=== PATIENT | male | born 1960 | race Caucasian/White ===

== ENCOUNTER → 2018-10-10 09:02 | Outpatient (CLI) | payer OTHER, SELFPAY ==
--- NOTE | 2018-10-10 09:04 | DI.RAD.S_ITS ---
PROCEDURE: XR TIBIA FIBULA RT 2V INDICATIONS: pain and swelling TECHNIQUE: 2 views of the tibia and fibula were acquired. COMPARISON: None. FINDINGS: Bones: No fractures or dislocations. No suspicious bony lesions. No osseous erosive change. No periosteal reaction. Soft tissues: No suspicious soft tissue calcifications or masses. IMPRESSION: No fracture. No osseous lesion. If symptoms and/or clinical suspicion for pathology persists, further assessment with repeat radiographs (7-10 days) or advanced imaging (e.g. CT, MRI or bone scan) may be helpful. Dictated by: Trang Justice MD, PhD on 10/10/2018 at 9:39 Approved by: Trang Justice MD, PhD on 10/10/2018 at 9:40
--- NOTE | 2018-10-10 09:04 | DI.RAD.S_ITS ---
PROCEDURE: XR KNEE LT 3V INDICATIONS: pain and swelling TECHNIQUE: 3 views of the knee were acquired. COMPARISON: None. FINDINGS: Bones: No fractures or dislocations. No suspicious bony lesions. No osseous erosive changes. No periosteal reaction. Soft tissues: No joint effusion. No suspicious soft tissue calcifications. Prepatellar soft tissue swelling is noted. No soft tissue gas. IMPRESSION: No fracture. No osseous lesion. If symptoms and/or clinical suspicion for pathology persists, further assessment with repeat radiographs (7-10 days) or advanced imaging (e.g. CT, MRI or bone scan) may be helpful. Dictated by: Tragn Justice MD, PhD on 10/10/2018 at 9:40 Approved by: Trang Justice MD, PhD on 10/10/2018 at 9:40
== END ==
PROVIDERS: Family Provider Family Medicine; PCP Family Medicine; Visit Provider Physician Assistant
DX: M25.562 Pain in left knee (principal); M79.89 Other specified soft tissue disorders
CPT/HCPCS: 73562; 73590

== ENCOUNTER 2019-04-20 08:15 | Outpatient (RCR) | payer OTHER, SELFPAY ==
--- NOTE | 2019-04-13 08:15 | PT.OIE ---
Current Diagnoses Unilateral primary osteoarthritis, left knee (04/16/19) Pain in left knee (04/16/19) Visit Care Team Role Provider Type Karlo Coppola MD Primary Care Provider Non-Staff Specialty: Family Practice Address: [address] [place] [address], [id number] Email: Devin Santana MD Attending Provider Physician Referring Provider Specialty: Orthopedic Surgery Address: [address] [place] [address], [id number] Email: [email or web address] [facility] Initial Evaluation PT-OP-A Visit Information Start: 04/13/19 15:33 Freq: Status: Active Protocol: Document 04/13/19 08:15 DLM (Rec: 04/14/19 09:02 DLM [id number]) Out-Patient Physical Therapy Visit Information Visit Information Visit Type Initial Evaluation Visit Start Time 08:15 Visit Stop Time 09:01 Total Visit Minutes 46 Visit Number 1 Evaluation Information Evaluation Date 04/13/19 PT-OP-B Current Condition Start: 04/13/19 15:33 Freq: Status: Active Protocol: Document 04/13/19 08:15 DLM (Rec: 04/14/19 09:02 DLM [id number]) Current Condition History of Current Condition Onset Date 10/10/18 Current Complaints left knee pain and swelling History of Current Condition He was standing on a fence when it gave way and he fell. He had immediate left knee pain. His knee is better than initial injury but continues to have pain, swelling and feels unstable. He feels the instability is getting worse especially with turning on his knee. His knee gets irritated with activity. Prior Treatments and Tests x-rays on left knee negative Age 17 open left knee surgery for meniscus tear Treatment Goals Patient/Caregiver Goals resolve the knee pain and be able to use the knee for normal activities Prior Functional Status Baseline Function- ADL's Independent Baseline Function- Mobility Independent Baseline Function- Work/School works at [employer], is on his feet standing and walking a lot, does some lifting Baseline Function- Recreation/Hobbies rock climbing, mountain biking Current Functional Impairments (Reported) Functional Limitations- ADL's Independent Functional Limitations- Mobility/Gait able to ambulate without device, knee feels like it will give away when he turns on it Functional Limitations- Work/School able to work normal schedule and hours but knee is swollen and sore after work Functional Limitations- Recreation/ has been limiting his Hobbies activities to manage his knee pain Functional Limitations- Other he reports he thinks he can do normal activities but it increases his pain and swelling Personal Factors Other Personal Factors That May Effect hx left ankle sprains also Therapy/Recovery with last one being last week PT-OP-C Subjective Start: 04/13/19 15:33 Freq: Status: Active Protocol: Document 04/13/19 08:15 DLM (Rec: 04/14/19 09:02 DLM [id number]) OP-PT Subjective Patient Comments Patient Comments He has not been doing any exercises at home, not sure what he should do Patient Questionnaires Lower Extremity Functional Scale LEFS Score 56/80 LEFS Impairment 20 to 39% Impaired (Score 48- 62) OP-PT Pain Assessment Location Left Anterior Medial Knee Intensity 4 Scale Used Numeric (1 - 10) Description Aching Description- Other numbness anterior knee since injury Frequency Constant Variations/Patterns worse with activity Pain Alleviating Factors Cold,Rest Home Pain Medication Use Pain Medications Used Yes: Ibuprofen Pain Behaviors Pain Behaviors Facial Grimacing PT-OP-D Balance Start: 04/13/19 15:33 Freq: Status: Active Protocol: Document 04/13/19 08:15 DLM (Rec: 04/14/19 10:11 DLM [id number]) Balance Tests Single Limb Standing Single Limb- Right >10 sec Single Limb- Left 5 sec with increased sway left ankle PT-OP-F Manual Assessment Start: 04/13/19 15:33 Freq: Status: Active Protocol: Document 04/13/19 08:15 DLM (Rec: 04/14/19 10:18 DLM [id number]) Manual Assessments Joint Mobility Assessment Joint Mobility Assessment left patella shows decreased glides with inferior most affected PT-OP-G Mobility & Gait Start: 04/13/19 15:33 Freq: Status: Active Protocol: Document 04/13/19 08:15 DLM (Rec: 04/14/19 09:02 DLM [id number]) OP Mobility Evaluation Transfers Sit to Stand Independent without UE support Functional Movements Running Assessment pt does not run at baseline due to history of left knee injury OP Gait Assessment Gait Gait Assistance Required: Independent Assistive Devices Assistive Device None Gait Deviations General Gait Pattern Antalgic Factors Limiting Gait Function Factors Limiting Gait Function Pain Comments Gait Comments mild changes in gait pattern with decreased stance time on left PT-OP-J Posture/Palpation/Skin Start: 04/13/19 15:33 Freq: Status: Active Protocol: Document 04/13/19 08:15 DLM (Rec: 04/14/19 10:15 DL [id number]) Posture Evaluation Position Standing Weight Distribution Weight Shifted Right Hip Posture (L) Externally Rotated,(R) Externally Rotated Ankle/Foot Posture (L) Pronated Comments Posture Comments he wears orthotics Palpation Assessment Location One Palpation Location left knee Palpation Findings Edema,Soft Tissue Tightness, Tenderness Palpation Details scar tissue throughout anterior knee, tender along joint line anterior and medial , old incision is well healed with only mild adhesions, edema is pocketed in anterior knee below patella Skin Assessment Circumference Measurement 2 Location Tibial tuberosity, left Measurement (Centimeters) 36.3 Comments right is 35.2 1 Location knee joint, left Measurement (Centimeters) 38.5 Comments right is 37.0 PT-OP-K Range of Motion Start: 04/13/19 15:33 Freq: Status: Active Protocol: Document 04/13/19 08:15 DLM (Rec: 04/14/19 09:02 DL [id number]) Hip Goniometric Range of Motion Hip Right Active Hip ROM WFL Yes Left Active Hip ROM WFL Yes Knee Goniometric Range of Motion Knee Right Knee ROM WFL Yes Patient Position Supine Flexion Active (degrees) 136 Hyper-Extension Active 2 Left Patient Position Supine Flexion Active (degrees) 126 Extension Active (degrees) 0 Knee ROM Limitations Knee ROM Limitations Soft Tissue Tightness,Pain, Swelling Comments hamstring tightness bilaterally Ankle and Foot Goniometric Range of Motion Ankle and Foot Right Active Ankle/Foot ROM WFL Yes Left Active Ankle/Foot ROM WFL Yes PT-OP-L Special Tests Start: 04/13/19 15:33 Freq: Status: Active Protocol: Document 04/13/19 08:15 DLM (Rec: 04/14/19 10:07 DL [id number]) Special Tests Knee Special Tests Valgus- 25 Degrees Test Results negative Comments mild pain on left Valgus- 0 Degrees Test Results negative Posterior Sag Test Results negative Anterior Draw Test Results mild to moderate laxity on left compared to right PT-OP-M Strength Start: 04/13/19 15:33 Freq: Status: Active Protocol: Document 04/13/19 08:15 DLM (Rec: 04/14/19 09:02 DLM [id number]) Hip Strength Hip Manual Muscle Testing Right Flexion (L2) 5 Normal Extension (S1) 5 Normal Abduction 5 Normal Adduction 5 Normal Left Flexion (L2) 5 Normal Extension (S1) 5 Normal Abduction 4+ Good+ Adduction 5 Normal Knee Strength Knee Manual Muscle Testing Right Flexion (S2) 5 Normal Extension (L3) 5 Normal Left Flexion (S2) 4+ Good+ Extension (L3) 4+ Good+ Reason Not Measured Pain Ankle/Foot Strength Ankle and Foot Manual Muscle Testing Right Dorsiflexion (L4) 5 Normal Plantarflexion (S1) 5 Normal Inversion 5 Normal Eversion (S1) 5 Normal Left Plantarflexion (S1) 4+ Good+ Inversion 4+ Good+ Eversion (S1) 4 Good PT-OP-Q Treatments Start: 04/13/19 15:33 Freq: Status: Active Protocol: Document 04/13/19 08:15 DLM (Rec: 04/14/19 10:22 DLM [id number]) Therapeutic Exercises Supine Exercises Hip Adduction Supine Exercise Name Hooklying Side bilateral Resistance isometric with 5 sec hold Reps/Minutes 10 reps Straight Leg Raise Supine Exercise Name with focus on VMO, trials of hip ER to improve isolation Side left Resistance active Reps/Minutes 10 reps x 2 sets Sitting Exercises Ankle Eversion Side left Resistance L2 exercise band Reps/Minutes 10 reps Comments provided exercise band to pt for home use Ankle Inversion Side left Resistance L2 exercise band Reps/Minutes 10 reps Standing Exercises Single Limb Standing Standing Exercise Name balancing/stabalization Side left Reps/Minutes 3 reps Self-Care/Home Management Treatment Education Patient Education Home Exercise Program Other Education education provided for treatment plan PT-OP-T Assessment and Plan Start: 04/13/19 15:33 Freq: Status: Active Protocol: Document 04/13/19 08:15 DLM (Rec: 04/14/19 14:28 DLM [id number]) Physical Therapy Assessment Rehab Potential Rehabilitation Potential Good Evaluation Complexity Number of Personal Factors/Comorbidities 1-2 Number of Body Systems Impaired 4 or More Clinical Presentation at Evaluation Evolving Impairments Impairments Activity Tolerance,Balance, Functional Activities,Gait, Pain,ROM,Sensation,Soft Tissue Mobility,Strength Goals Four Impairment Pain left knee 4/10, constant Short Term Goal (STG) Decrease left knee pain to intermittent STG Duration 4 weeks Resident Service Coordinator Goal (LTG) Left knee pain will not interfere with his return to all normal sports and activities. LTG Duration 8 weeks Three Impairment Antalgic Gait Short Term Goal (STG) Normalize gait pattern without device STG Duration 4 weeks Two Impairment Impaired Strength Short Term Goal (STG) Increase left ankle Eversion strength to 4+/5 STG Duration 4 weeks Mcfp Goal (LTG) Increase left LE strength to 5 /5 LTG Duration 8 weeks One Impairment Impaired left knee ROM, flexion 126 degrees Short Term Goal (STG) Resolve left knee pain with AROM STG Duration 4 weeks Mcfp Goal (LTG) Increase left knee AROM flexion to 135 degrees LTG Duration 8 weeks Assessment Summary Assessment Thee presents with left knee pain that appears to be a strain/sprain from a fall complicated by underlying arthritic changes. He continues to have inflammation and edema that increases when active on left knee. He is very active at baseline and wants to be able to continue his sports and activity. His case is further complicated by ankle instability. He could benefit from physical therapy to address the above deficits. Physical Therapy Plan Frequency and Duration Frequency of Treatment 2x/Week Duration of Treatment 8 Plan of Care Start Date 04/13/19 Plan of Care End Date 06/12/19 Therapeutic Interventions Therapeutic Interventions Balance Training,Gait Training ,Home Exercise Program,Manual Therapy,Patient/Caregiver Education,Self-Care/Home Management,Soft Tissue Mobilization,Taping, Therapeutic Activities, Therapeutic Exercises Modalities Cold Pack/Ice Massage,Electric Stimulation,Hot Packs, Infrared Therapy,Ultrasound Next Visit Focus/Plan Next Note Type Treatment Note Next Visit Plan advance exercises, add manual therapy, trial a modality for pain and edema
--- NOTE | 2019-04-13 08:15 | PT.OPPOC ---
Physical, Occupational & Speech Therapy At [facility] Current Diagnoses Unilateral primary osteoarthritis, left knee (04/13/19) Pain in left knee (04/13/19) Visit Care Team Role Provider Type Karlo Coppola MD Primary Care Provider Non-Staff Specialty: Family Practice Address: [address] [place] [address], [id number] Email: Devin Santana MD Attending Provider Physician Referring Provider Specialty: Orthopedic Surgery Address: [address] [place] [address], [id number] Email: [email or web address] Plan Of Care PT-OP-T Assessment and Plan Start: 04/13/19 15:33 Freq: Status: Active Protocol: Document 04/13/19 08:15 DLM (Rec: 04/14/19 14:28 DLM [id number]) Physical Therapy Assessment Rehab Potential Rehabilitation Potential Good Evaluation Complexity Number of Personal Factors/Comorbidities 1-2 Number of Body Systems Impaired 4 or More Clinical Presentation at Evaluation Evolving Impairments Impairments Activity Tolerance,Balance, Functional Activities,Gait, Pain,ROM,Sensation,Soft Tissue Mobility,Strength Goals Four Impairment Pain left knee 4/10, constant Short Term Goal (STG) Decrease left knee pain to intermittent STG Duration 4 weeks Penitentiary Goal (LTG) Left knee pain will not interfere with his return to all normal sports and activities. LTG Duration 8 weeks Three Impairment Antalgic Gait Short Term Goal (STG) Normalize gait pattern without device STG Duration 4 weeks Two Impairment Impaired Strength Short Term Goal (STG) Increase left ankle Eversion strength to 4+/5 STG Duration 4 weeks Wood Router Hand Goal (LTG) Increase left LE strength to 5 /5 LTG Duration 8 weeks One Impairment Impaired left knee ROM, flexion 126 degrees Short Term Goal (STG) Resolve left knee pain with AROM STG Duration 4 weeks Penitentiary Goal (LTG) Increase left knee AROM flexion to 135 degrees LTG Duration 8 weeks Assessment Summary Assessment Thee presents with left knee pain that appears to be a strain/sprain from a fall complicated by underlying arthritic changes. He continues to have inflammation and edema that increases when active on left knee. He is very active at baseline and wants to be able to continue his sports and activity. His case is further complicated by ankle instability. He could benefit from physical therapy to address the above deficits. Physical Therapy Plan Frequency and Duration Frequency of Treatment 2x/Week Duration of Treatment 8 Plan of Care Start Date 04/13/19 Plan of Care End Date 06/12/19 Therapeutic Interventions Therapeutic Interventions Balance Training,Gait Training ,Home Exercise Program,Manual Therapy,Patient/Caregiver Education,Self-Care/Home Management,Soft Tissue Mobilization,Taping, Therapeutic Activities, Therapeutic Exercises Modalities Cold Pack/Ice Massage,Electric Stimulation,Hot Packs, Infrared Therapy,Ultrasound Next Visit Focus/Plan Next Note Type Treatment Note Next Visit Plan advance exercises, add manual therapy, trial a modality for pain and edema Plan of Care Dates Plan of Care Start Date 04/13/19 Plan of Care End Date 06/12/19 Electronically Signed by: Alejandra Zuleta, PT 04/14/19 [id number] Please Sign and Return: I have reviewed this Plan of Care and certify that the skilled therapy services above are required to meet the patient?s needs. Physician Signature Date Printed Name and Credentials
--- NOTE | 2019-04-14 14:28 | PT.OIE ---
Current Diagnoses Unilateral primary osteoarthritis, left knee (04/13/19) Pain in left knee (04/13/19) Visit Care Team Role Provider Type Karlo Coppola MD Primary Care Provider Non-Staff Specialty: Family Practice Address: [address] [place] [address], [id number] Email: Devin Santana MD Attending Provider Physician Referring Provider Specialty: Orthopedic Surgery Address: [address] [place] [address], [id number] Email: [email or web address] Physical Therapy Initial Evaluation PT-OP-A Visit Information Start: 04/13/19 15:33 Freq: Status: Active Protocol: Document 04/13/19 08:15 DLM (Rec: 04/14/19 09:02 DLM [id number]) Out-Patient Physical Therapy Visit Information Visit Information Visit Type Initial Evaluation Visit Start Time 08:15 Visit Stop Time 09:01 Total Visit Minutes 46 Visit Number 1 Evaluation Information Evaluation Date 04/14/19 PT-OP-B Current Condition Start: 04/13/19 15:33 Freq: Status: Active Protocol: Document 04/13/19 08:15 DLM (Rec: 04/14/19 09:02 DLM [id number]) Current Condition History of Current Condition Onset Date 10/10/18 Current Complaints left knee pain and swelling History of Current Condition He was standing on a fence when it gave way and he fell. He had immediate left knee pain. His knee is better than initial injury but continues to have pain, swelling and feels unstable. He feels the instability is getting worse especially with turning on his knee. His knee gets irritated with activity. Prior Treatments and Tests x-rays on left knee negative Age 17 open left knee surgery for meniscus tear Treatment Goals Patient/Caregiver Goals resolve the knee pain and be able to use the knee for normal activities Prior Functional Status Baseline Function- ADL's Independent Baseline Function- Mobility Independent Baseline Function- Work/School works at [employer], is on his feet standing and walking a lot, does some lifting Baseline Function- Recreation/Hobbies rock climbing, mountain biking Current Functional Impairments (Reported) Functional Limitations- ADL's Independent Functional Limitations- Mobility/Gait able to ambulate without device, knee feels like it will give away when he turns on it Functional Limitations- Work/School able to work normal schedule and hours but knee is swollen and sore after work Functional Limitations- Recreation/ has been limiting his Hobbies activities to manage his knee pain Functional Limitations- Other he reports he thinks he can do normal activities but it increases his pain and swelling Personal Factors Other Personal Factors That May Effect hx left ankle sprains also Therapy/Recovery with last one being last week PT-OP-C Subjective Start: 04/13/19 15:33 Freq: Status: Active Protocol: Document 04/13/19 08:15 DLM (Rec: 04/14/19 09:02 DLM [id number]) OP-PT Subjective Patient Comments Patient Comments He has not been doing any exercises at home, not sure what he should do Patient Questionnaires Lower Extremity Functional Scale LEFS Score 56/80 LEFS Impairment 20 to 39% Impaired (Score 48- 62) OP-PT Pain Assessment Location Left Anterior Medial Knee Intensity 4 Scale Used Numeric (1 - 10) Description Aching Description- Other numbness anterior knee since injury Frequency Constant Variations/Patterns worse with activity Pain Alleviating Factors Cold,Rest Home Pain Medication Use Pain Medications Used Yes: Ibuprofen Pain Behaviors Pain Behaviors Facial Grimacing PT-OP-D Balance Start: 04/13/19 15:33 Freq: Status: Active Protocol: Document 04/13/19 08:15 DLM (Rec: 04/14/19 10:11 DLM [id number]) Balance Tests Single Limb Standing Single Limb- Right >10 sec Single Limb- Left 5 sec with increased sway left ankle PT-OP-F Manual Assessment Start: 04/13/19 15:33 Freq: Status: Active Protocol: Document 04/13/19 08:15 DLM (Rec: 04/14/19 10:18 DLM [id number]) Manual Assessments Joint Mobility Assessment Joint Mobility Assessment left patella shows decreased glides with inferior most affected PT-OP-G Mobility & Gait Start: 04/13/19 15:33 Freq: Status: Active Protocol: Document 04/13/19 08:15 DLM (Rec: 04/14/19 09:02 DLM [id number]) OP Mobility Evaluation Transfers Sit to Stand Independent without UE support Functional Movements Running Assessment pt does not run at baseline due to history of left knee injury OP Gait Assessment Gait Gait Assistance Required: Independent Assistive Devices Assistive Device None Gait Deviations General Gait Pattern Antalgic Factors Limiting Gait Function Factors Limiting Gait Function Pain Comments Gait Comments mild changes in gait pattern with decreased stance time on left PT-OP-J Posture/Palpation/Skin Start: 04/13/19 15:33 Freq: Status: Active Protocol: Document 04/13/19 08:15 DLM (Rec: 04/14/19 10:15 DL [id number]) Posture Evaluation Position Standing Weight Distribution Weight Shifted Right Hip Posture (L) Externally Rotated,(R) Externally Rotated Ankle/Foot Posture (L) Pronated Comments Posture Comments he wears orthotics Palpation Assessment Location One Palpation Location left knee Palpation Findings Edema,Soft Tissue Tightness, Tenderness Palpation Details scar tissue throughout anterior knee, tender along joint line anterior and medial , old incision is well healed with only mild adhesions, edema is pocketed in anterior knee below patella Skin Assessment Circumference Measurement 2 Location Tibial tuberosity, left Measurement (Centimeters) 36.3 Comments right is 35.2 1 Location knee joint, left Measurement (Centimeters) 38.5 Comments right is 37.0 PT-OP-K Range of Motion Start: 04/13/19 15:33 Freq: Status: Active Protocol: Document 04/13/19 08:15 DLM (Rec: 04/14/19 09:02 DL [id number]) Hip Goniometric Range of Motion Hip Right Active Hip ROM WFL Yes Left Active Hip ROM WFL Yes Knee Goniometric Range of Motion Knee Right Knee ROM WFL Yes Patient Position Supine Flexion Active (degrees) 136 Hyper-Extension Active 2 Left Patient Position Supine Flexion Active (degrees) 126 Extension Active (degrees) 0 Knee ROM Limitations Knee ROM Limitations Soft Tissue Tightness,Pain, Swelling Comments hamstring tightness bilaterally Ankle and Foot Goniometric Range of Motion Ankle and Foot Right Active Ankle/Foot ROM WFL Yes Left Active Ankle/Foot ROM WFL Yes PT-OP-L Special Tests Start: 04/13/19 15:33 Freq: Status: Active Protocol: Document 04/13/19 08:15 DLM (Rec: 04/14/19 10:07 DL [id number]) Special Tests Knee Special Tests Valgus- 25 Degrees Test Results negative Comments mild pain on left Valgus- 0 Degrees Test Results negative Posterior Sag Test Results negative Anterior Draw Test Results mild to moderate laxity on left compared to right PT-OP-M Strength Start: 04/13/19 15:33 Freq: Status: Active Protocol: Document 04/13/19 08:15 DLM (Rec: 04/14/19 09:02 DLM [id number]) Hip Strength Hip Manual Muscle Testing Right Flexion (L2) 5 Normal Extension (S1) 5 Normal Abduction 5 Normal Adduction 5 Normal Left Flexion (L2) 5 Normal Extension (S1) 5 Normal Abduction 4+ Good+ Adduction 5 Normal Knee Strength Knee Manual Muscle Testing Right Flexion (S2) 5 Normal Extension (L3) 5 Normal Left Flexion (S2) 4+ Good+ Extension (L3) 4+ Good+ Reason Not Measured Pain Ankle/Foot Strength Ankle and Foot Manual Muscle Testing Right Dorsiflexion (L4) 5 Normal Plantarflexion (S1) 5 Normal Inversion 5 Normal Eversion (S1) 5 Normal Left Plantarflexion (S1) 4+ Good+ Inversion 4+ Good+ Eversion (S1) 4 Good PT-OP-Q Treatments Start: 04/13/19 15:33 Freq: Status: Active Protocol: Document 04/13/19 08:15 DLM (Rec: 04/14/19 10:22 DLM [id number]) Therapeutic Exercises Supine Exercises Hip Adduction Supine Exercise Name Hooklying Side bilateral Resistance isometric with 5 sec hold Reps/Minutes 10 reps Straight Leg Raise Supine Exercise Name with focus on VMO, trials of hip ER to improve isolation Side left Resistance active Reps/Minutes 10 reps x 2 sets Sitting Exercises Ankle Eversion Side left Resistance L2 exercise band Reps/Minutes 10 reps Comments provided exercise band to pt for home use Ankle Inversion Side left Resistance L2 exercise band Reps/Minutes 10 reps Standing Exercises Single Limb Standing Standing Exercise Name balancing/stabalization Side left Reps/Minutes 3 reps Self-Care/Home Management Treatment Education Patient Education Home Exercise Program Other Education education provided for treatment plan PT-OP-T Assessment and Plan Start: 04/13/19 15:33 Freq: Status: Active Protocol: Document 04/13/19 08:15 DLM (Rec: 04/14/19 14:28 DLM [id number]) Physical Therapy Assessment Rehab Potential Rehabilitation Potential Good Evaluation Complexity Number of Personal Factors/Comorbidities 1-2 Number of Body Systems Impaired 4 or More Clinical Presentation at Evaluation Evolving Impairments Impairments Activity Tolerance,Balance, Functional Activities,Gait, Pain,ROM,Sensation,Soft Tissue Mobility,Strength Goals Four Impairment Pain left knee 4/10, constant Short Term Goal (STG) Decrease left knee pain to intermittent STG Duration 4 weeks Leasing Representative Goal (LTG) Left knee pain will not interfere with his return to all normal sports and activities. LTG Duration 8 weeks Three Impairment Antalgic Gait Short Term Goal (STG) Normalize gait pattern without device STG Duration 4 weeks Two Impairment Impaired Strength Short Term Goal (STG) Increase left ankle Eversion strength to 4+/5 STG Duration 4 weeks Mcc Goal (LTG) Increase left LE strength to 5 /5 LTG Duration 8 weeks One Impairment Impaired left knee ROM, flexion 126 degrees Short Term Goal (STG) Resolve left knee pain with AROM STG Duration 4 weeks Mcc Goal (LTG) Increase left knee AROM flexion to 135 degrees LTG Duration 8 weeks Assessment Summary Assessment Thee presents with left knee pain that appears to be a strain/sprain from a fall complicated by underlying arthritic changes. He continues to have inflammation and edema that increases when active on left knee. He is very active at baseline and wants to be able to continue his sports and activity. His case is further complicated by ankle instability. He could benefit from physical therapy to address the above deficits. Physical Therapy Plan Frequency and Duration Frequency of Treatment 2x/Week Duration of Treatment 8 Plan of Care Start Date 04/13/19 Plan of Care End Date 06/12/19 Therapeutic Interventions Therapeutic Interventions Balance Training,Gait Training ,Home Exercise Program,Manual Therapy,Patient/Caregiver Education,Self-Care/Home Management,Soft Tissue Mobilization,Taping, Therapeutic Activities, Therapeutic Exercises Modalities Cold Pack/Ice Massage,Electric Stimulation,Hot Packs, Infrared Therapy,Ultrasound Next Visit Focus/Plan Next Note Type Treatment Note Next Visit Plan advance exercises, add manual therapy, trial a modality for pain and edema
--- NOTE | 2019-04-16 08:15 | PT.OTN ---
Current Diagnoses Unilateral primary osteoarthritis, left knee (04/16/19) Pain in left knee (04/16/19) Physical Therapy Treatment Note PT-OP-A Visit Information Start: 04/13/19 15:33 Freq: Status: Active Protocol: Document 04/16/19 08:15 DLM (Rec: 04/16/19 12:20 DLM [id number]) Out-Patient Physical Therapy Visit Information Visit Information Visit Type Treatment Note Visit Start Time 08:15 Visit Stop Time 09:15 Total Visit Minutes 60 Visit Number 2 Number of DECKER OPERATOR Visits 0 Evaluation Information Evaluation Date 04/13/19 PT-OP-B Current Condition Start: 04/13/19 15:33 Freq: Status: Active Protocol: Document 04/13/19 08:15 DLM (Rec: 04/14/19 09:02 DL [id number]) Current Condition History of Current Condition Onset Date 10/10/18 Current Complaints left knee pain and swelling History of Current Condition He was standing on a fence when it gave way and he fell. He had immediate left knee pain. His knee is better than initial injury but continues to have pain, swelling and feels unstable. He feels the instability is getting worse especially with turning on his knee. His knee gets irritated with activity. Prior Treatments and Tests x-rays on left knee negative Age 17 open left knee surgery for meniscus tear Treatment Goals Patient/Caregiver Goals resolve the knee pain and be able to use the knee for normal activities Prior Functional Status Baseline Function- ADL's Independent Baseline Function- Mobility Independent Baseline Function- Work/School works at [employer], is on his feet standing and walking a lot, does some lifting Baseline Function- Recreation/Hobbies rock climbing, mountain biking Current Functional Impairments (Reported) Functional Limitations- ADL's Independent Functional Limitations- Mobility/Gait able to ambulate without device, knee feels like it will give away when he turns on it Functional Limitations- Work/School able to work normal schedule and hours but knee is swollen and sore after work Functional Limitations- Recreation/ has been limiting his Hobbies activities to manage his knee pain Functional Limitations- Other he reports he thinks he can do normal activities but it increases his pain and swelling Personal Factors Other Personal Factors That May Effect hx left ankle sprains also Therapy/Recovery with last one being last week PT-OP-C Subjective Start: 04/13/19 15:33 Freq: Status: Active Protocol: Document 04/16/19 08:15 DLM (Rec: 04/16/19 12:20 DLM [id number]) OP-PT Subjective Patient Comments Patient Comments His knee is less swollen today because he has not been on it much yet. PT-OP-D Balance Start: 04/13/19 15:33 Freq: Status: Active Protocol: Document 04/13/19 08:15 DLM (Rec: 04/14/19 10:11 DLM [id number]) Balance Tests Single Limb Standing Single Limb- Right >10 sec Single Limb- Left 5 sec with increased sway left ankle PT-OP-F Manual Assessment Start: 04/13/19 15:33 Freq: Status: Active Protocol: Document 04/13/19 08:15 DLM (Rec: 04/14/19 10:18 DLM [id number]) Manual Assessments Joint Mobility Assessment Joint Mobility Assessment left patella shows decreased glides with inferior most affected PT-OP-G Mobility & Gait Start: 04/13/19 15:33 Freq: Status: Active Protocol: Document 04/13/19 08:15 DLM (Rec: 04/14/19 09:02 DLM [id number]) OP Mobility Evaluation Transfers Sit to Stand Independent without UE support Functional Movements Running Assessment pt does not run at baseline due to history of left knee injury OP Gait Assessment Gait Gait Assistance Required: Independent Assistive Devices Assistive Device None Gait Deviations General Gait Pattern Antalgic Factors Limiting Gait Function Factors Limiting Gait Function Pain Comments Gait Comments mild changes in gait pattern with decreased stance time on left PT-OP-J Posture/Palpation/Skin Start: 04/13/19 15:33 Freq: Status: Active Protocol: Document 04/13/19 08:15 DLM (Rec: 04/14/19 10:15 DLM [id number]) Posture Evaluation Position Standing Weight Distribution Weight Shifted Right Hip Posture (L) Externally Rotated,(R) Externally Rotated Ankle/Foot Posture (L) Pronated Comments Posture Comments he wears orthotics Palpation Assessment Location One Palpation Location left knee Palpation Findings Edema,Soft Tissue Tightness, Tenderness Palpation Details scar tissue throughout anterior knee, tender along joint line anterior and medial , old incision is well healed with only mild adhesions, edema is pocketed in anterior knee below patella Skin Assessment Circumference Measurement 2 Location Tibial tuberosity, left Measurement (Centimeters) 36.3 Comments right is 35.2 1 Location knee joint, left Measurement (Centimeters) 38.5 Comments right is 37.0 PT-OP-K Range of Motion Start: 04/13/19 15:33 Freq: Status: Active Protocol: Document 04/13/19 08:15 DLM (Rec: 04/14/19 09:02 DLM [id number]) Hip Goniometric Range of Motion Hip Right Active Hip ROM WFL Yes Left Active Hip ROM WFL Yes Knee Goniometric Range of Motion Knee Right Knee ROM WFL Yes Patient Position Supine Flexion Active (degrees) 136 Hyper-Extension Active 2 Left Patient Position Supine Flexion Active (degrees) 126 Extension Active (degrees) 0 Knee ROM Limitations Knee ROM Limitations Soft Tissue Tightness,Pain, Swelling Comments hamstring tightness bilaterally Ankle and Foot Goniometric Range of Motion Ankle and Foot Right Active Ankle/Foot ROM WFL Yes Left Active Ankle/Foot ROM WFL Yes PT-OP-L Special Tests Start: 04/13/19 15:33 Freq: Status: Active Protocol: Document 04/13/19 08:15 DLM (Rec: 04/14/19 10:07 DL [id number]) Special Tests Knee Special Tests Valgus- 25 Degrees Test Results negative Comments mild pain on left Valgus- 0 Degrees Test Results negative Posterior Sag Test Results negative Anterior Draw Test Results mild to moderate laxity on left compared to right PT-OP-M Strength Start: 04/13/19 15:33 Freq: Status: Active Protocol: Document 04/13/19 08:15 DLM (Rec: 04/14/19 09:02 [facility] [id number]) Hip Strength Hip Manual Muscle Testing Right Flexion (L2) 5 Normal Extension (S1) 5 Normal Abduction 5 Normal Adduction 5 Normal Left Flexion (L2) 5 Normal Extension (S1) 5 Normal Abduction 4+ Good+ Adduction 5 Normal Knee Strength Knee Manual Muscle Testing Right Flexion (S2) 5 Normal Extension (L3) 5 Normal Left Flexion (S2) 4+ Good+ Extension (L3) 4+ Good+ Reason Not Measured Pain Ankle/Foot Strength Ankle and Foot Manual Muscle Testing Right Dorsiflexion (L4) 5 Normal Plantarflexion (S1) 5 Normal Inversion 5 Normal Eversion (S1) 5 Normal Left Plantarflexion (S1) 4+ Good+ Inversion 4+ Good+ Eversion (S1) 4 Good PT-OP-Q Treatments Start: 04/13/19 15:33 Freq: Status: Active Protocol: Document 04/16/19 08:15 DLM (Rec: 04/16/19 12:20 DLM [id number]) Therapeutic Exercises Supine Exercises Hip Adduction Supine Exercise Name Hooklying Side bilateral Resistance isometric with 5 sec hold Reps/Minutes 10 reps Straight Leg Raise Supine Exercise Name with focus on VMO, trials of hip ER to improve isolation Side left Resistance active Reps/Minutes 10 reps x 2 sets Sidelying Exercises Hip Abduction Sidelying Exercise Name SLR position Reps/Minutes 2 x 10 reps Hip Adduction Sidelying Exercise Name SLR position Reps/Minutes 10 reps Sitting Exercises Hamstring Stretch Sitting Exercise Name single limb long sitting Side bilateral Resistance passive Reps/Minutes 3 reps each, 20-30 sec hold Comments used tall mat table Ankle Eversion Side left Resistance L2 exercise band Reps/Minutes 10 reps Comments provided exercise band to pt for home use Ankle Inversion Side left Resistance L2 exercise band Reps/Minutes 10 reps Standing Exercises Single Limb Standing Standing Exercise Name balancing/stabalization Side left Reps/Minutes 4 reps Manual Therapy Treatment Soft Tissue Mobilization 1 Body Location left knee Mobilization Type Cross-Friction,Rolling, Strumming Joint Mobilizations Patellar Mobs Joint PF Direction all Grade II Body Position Supine PT-OP-R Modalities Start: 04/13/19 15:33 Freq: Status: Active Protocol: Document 04/16/19 08:15 DLM (Rec: 04/16/19 12:20 [facility] [id number]) Electric Stimulation Electric Stimulation Interferential Current (IFC) Body Location left knee Duration (Minutes) 15 Intensity 13 Combined With Heat/Cold Cold Pack Comments to decrease inflammation and pain PT-OP-T Assessment and Plan Start: 04/13/19 15:33 Freq: Status: Active Protocol: Document 04/16/19 08:15 DLM (Rec: 04/16/19 12:20 DL [id number]) Physical Therapy Assessment Goals Four Impairment Pain left knee 4/10, constant Short Term Goal (STG) Decrease left knee pain to intermittent STG Duration 4 weeks Intermediate Goal (LTG) Left knee pain will not interfere with his return to all normal sports and activities. LTG Duration 8 weeks Three Impairment Antalgic Gait Short Term Goal (STG) Normalize gait pattern without device STG Duration 4 weeks Two Impairment Impaired Strength Short Term Goal (STG) Increase left ankle Eversion strength to 4+/5 STG Duration 4 weeks Intermediate Goal (LTG) Increase left LE strength to 5 /5 LTG Duration 8 weeks One Impairment Impaired left knee ROM, flexion 126 degrees Short Term Goal (STG) Resolve left knee pain with AROM STG Duration 4 weeks Supervisor Denture Department Goal (LTG) Increase left knee AROM flexion to 135 degrees LTG Duration 8 weeks Progress Towards Goals Progress Towards Goals Progressing Toward Goals Assessment Summary Assessment He tolerated treatment well today. He reports mild to moderate irritation in knee after eval. Less edema noted this visit which appears to be related to earlier morning appt. Physical Therapy Plan Frequency and Duration Frequency of Treatment 2x/Week Duration of Treatment 8 Plan of Care Start Date 04/13/19 Plan of Care End Date 06/12/19 Therapeutic Interventions Therapeutic Interventions Balance Training,Gait Training ,Home Exercise Program,Manual Therapy,Patient/Caregiver Education,Self-Care/Home Management,Soft Tissue Mobilization,Taping, Therapeutic Activities, Therapeutic Exercises Modalities Cold Pack/Ice Massage,Electric Stimulation,Hot Packs, Infrared Therapy,Ultrasound Next Visit Focus/Plan Next Note Type Treatment Note Next Visit Plan assess response to Estim, advance open chain strengthening
--- NOTE | 2019-04-20 08:17 | PT.OTN ---
Current Diagnoses Unilateral primary osteoarthritis, left knee (04/20/19) Pain in left knee (04/20/19) Physical Therapy Treatment Note PT-OP-A Visit Information Start: 04/13/19 15:33 Freq: Status: Active Protocol: Document 04/20/19 08:17 DLM (Rec: 04/20/19 09:58 DLM [id number]) Out-Patient Physical Therapy Visit Information Visit Information Visit Type Treatment Note Visit Start Time 08:17 Visit Stop Time 09:20 Total Visit Minutes 57 Visit Number 3 Number of TREE PRUNER Visits 0 Evaluation Information Evaluation Date 04/13/19 PT-OP-B Current Condition Start: 04/13/19 15:33 Freq: Status: Active Protocol: Document 04/13/19 08:15 DLM (Rec: 04/14/19 09:02 DL [id number]) Current Condition History of Current Condition Onset Date 10/10/18 Current Complaints left knee pain and swelling History of Current Condition He was standing on a fence when it gave way and he fell. He had immediate left knee pain. His knee is better than initial injury but continues to have pain, swelling and feels unstable. He feels the instability is getting worse especially with turning on his knee. His knee gets irritated with activity. Prior Treatments and Tests x-rays on left knee negative Age 17 open left knee surgery for meniscus tear Treatment Goals Patient/Caregiver Goals resolve the knee pain and be able to use the knee for normal activities Prior Functional Status Baseline Function- ADL's Independent Baseline Function- Mobility Independent Baseline Function- Work/School works at [employer], is on his feet standing and walking a lot, does some lifting Baseline Function- Recreation/Hobbies rock climbing, mountain biking Current Functional Impairments (Reported) Functional Limitations- ADL's Independent Functional Limitations- Mobility/Gait able to ambulate without device, knee feels like it will give away when he turns on it Functional Limitations- Work/School able to work normal schedule and hours but knee is swollen and sore after work Functional Limitations- Recreation/ has been limiting his Hobbies activities to manage his knee pain Functional Limitations- Other he reports he thinks he can do normal activities but it increases his pain and swelling Personal Factors Other Personal Factors That May Effect hx left ankle sprains also Therapy/Recovery with last one being last week PT-OP-C Subjective Start: 04/13/19 15:33 Freq: Status: Active Protocol: Document 04/20/19 08:17 DLM (Rec: 04/20/19 09:58 DLM [id number]) OP-PT Subjective Patient Comments Patient Comments He did a lot of yard work over weekend. He is not sure how much the Estim helps. OP-PT Pain Assessment Location Left Anterior Medial Knee Intensity 5 Scale Used Numeric (1 - 10) Description Aching Description- Other numbness anterior knee PT-OP-D Balance Start: 04/13/19 15:33 Freq: Status: Active Protocol: Document 04/13/19 08:15 DLM (Rec: 04/14/19 10:11 DLM [id number]) Balance Tests Single Limb Standing Single Limb- Right >10 sec Single Limb- Left 5 sec with increased sway left ankle PT-OP-F Manual Assessment Start: 04/13/19 15:33 Freq: Status: Active Protocol: Document 04/13/19 08:15 DLM (Rec: 04/14/19 10:18 DLM [id number]) Manual Assessments Joint Mobility Assessment Joint Mobility Assessment left patella shows decreased glides with inferior most affected PT-OP-G Mobility & Gait Start: 04/13/19 15:33 Freq: Status: Active Protocol: Document 04/13/19 08:15 DLM (Rec: 04/14/19 09:02 DLM [id number]) OP Mobility Evaluation Transfers Sit to Stand Independent without UE support Functional Movements Running Assessment pt does not run at baseline due to history of left knee injury OP Gait Assessment Gait Gait Assistance Required: Independent Assistive Devices Assistive Device None Gait Deviations General Gait Pattern Antalgic Factors Limiting Gait Function Factors Limiting Gait Function Pain Comments Gait Comments mild changes in gait pattern with decreased stance time on left PT-OP-J Posture/Palpation/Skin Start: 04/13/19 15:33 Freq: Status: Active Protocol: Document 04/13/19 08:15 DLM (Rec: 04/14/19 10:15 DLM [id number]) Posture Evaluation Position Standing Weight Distribution Weight Shifted Right Hip Posture (L) Externally Rotated,(R) Externally Rotated Ankle/Foot Posture (L) Pronated Comments Posture Comments he wears orthotics Palpation Assessment Location One Palpation Location left knee Palpation Findings Edema,Soft Tissue Tightness, Tenderness Palpation Details scar tissue throughout anterior knee, tender along joint line anterior and medial , old incision is well healed with only mild adhesions, edema is pocketed in anterior knee below patella Skin Assessment Circumference Measurement 2 Location Tibial tuberosity, left Measurement (Centimeters) 36.3 Comments right is 35.2 1 Location knee joint, left Measurement (Centimeters) 38.5 Comments right is 37.0 PT-OP-K Range of Motion Start: 04/13/19 15:33 Freq: Status: Active Protocol: Document 04/13/19 08:15 DLM (Rec: 04/14/19 09:02 [facility] [id number]) Hip Goniometric Range of Motion Hip Right Active Hip ROM WFL Yes Left Active Hip ROM WFL Yes Knee Goniometric Range of Motion Knee Right Knee ROM WFL Yes Patient Position Supine Flexion Active (degrees) 136 Hyper-Extension Active 2 Left Patient Position Supine Flexion Active (degrees) 126 Extension Active (degrees) 0 Knee ROM Limitations Knee ROM Limitations Soft Tissue Tightness,Pain, Swelling Comments hamstring tightness bilaterally Ankle and Foot Goniometric Range of Motion Ankle and Foot Right Active Ankle/Foot ROM WFL Yes Left Active Ankle/Foot ROM WFL Yes PT-OP-L Special Tests Start: 04/13/19 15:33 Freq: Status: Active Protocol: Document 04/13/19 08:15 DLM (Rec: 04/14/19 10:07 [facility] [id number]) Special Tests Knee Special Tests Valgus- 25 Degrees Test Results negative Comments mild pain on left Valgus- 0 Degrees Test Results negative Posterior Sag Test Results negative Anterior Draw Test Results mild to moderate laxity on left compared to right PT-OP-M Strength Start: 04/13/19 15:33 Freq: Status: Active Protocol: Document 04/13/19 08:15 DLM (Rec: 04/14/19 09:02 [facility] [id number]) Hip Strength Hip Manual Muscle Testing Right Flexion (L2) 5 Normal Extension (S1) 5 Normal Abduction 5 Normal Adduction 5 Normal Left Flexion (L2) 5 Normal Extension (S1) 5 Normal Abduction 4+ Good+ Adduction 5 Normal Knee Strength Knee Manual Muscle Testing Right Flexion (S2) 5 Normal Extension (L3) 5 Normal Left Flexion (S2) 4+ Good+ Extension (L3) 4+ Good+ Reason Not Measured Pain Ankle/Foot Strength Ankle and Foot Manual Muscle Testing Right Dorsiflexion (L4) 5 Normal Plantarflexion (S1) 5 Normal Inversion 5 Normal Eversion (S1) 5 Normal Left Plantarflexion (S1) 4+ Good+ Inversion 4+ Good+ Eversion (S1) 4 Good PT-OP-Q Treatments Start: 04/13/19 15:33 Freq: Status: Active Protocol: Document 04/20/19 08:17 DL (Rec: 04/20/19 09:58 DL [id number]) Therapeutic Exercises Supine Exercises Bridging Reps/Minutes 15 reps Comments try exercise band around knees next visit Hip Adduction Supine Exercise Name Hooklying Side bilateral Resistance isometric with 5 sec hold Reps/Minutes 10 reps Straight Leg Raise Supine Exercise Name with focus on VMO, trials of hip ER to improve isolation Side left Resistance active Reps/Minutes 10 reps x 2 sets Sidelying Exercises Hip Abduction Sidelying Exercise Name SLR position Reps/Minutes 2 x 10 reps Hip Adduction Sidelying Exercise Name SLR position Reps/Minutes 10 reps Sitting Exercises Hamstring Curls Side left Resistance L2 exercise banD Reps/Minutes 20 Reps Hamstring Stretch Sitting Exercise Name single limb long sitting Side bilateral Resistance passive Reps/Minutes 3 reps each, 20-30 sec hold Comments used tall mat table Ankle Eversion Side left Resistance L2 exercise band Reps/Minutes 10 reps Ankle Inversion Side left Resistance L2 exercise band Reps/Minutes 10 reps Standing Exercises Single Limb Standing Standing Exercise Name balancing/stabalization Side left Reps/Minutes 4 reps Manual Therapy Treatment Soft Tissue Mobilization 1 Body Location left knee Mobilization Type Cross-Friction,Rolling, Strumming PT-OP-R Modalities Start: 04/13/19 15:33 Freq: Status: Active Protocol: Document 04/20/19 08:17 DL (Rec: 04/20/19 09:58 [facility] [id number]) Electric Stimulation Electric Stimulation Interferential Current (IFC) Body Location left knee Duration (Minutes) 15 Intensity 19 Combined With Heat/Cold Cold Pack Comments to decrease inflammation and pain PT-OP-T Assessment and Plan Start: 04/13/19 15:33 Freq: Status: Active Protocol: Document 04/20/19 08:17 DL (Rec: 04/20/19 09:58 [facility] [id number]) Physical Therapy Assessment Goals Four Impairment Pain left knee 4/10, constant Short Term Goal (STG) Decrease left knee pain to intermittent STG Duration 4 weeks Regulatory Consultant Goal (LTG) Left knee pain will not interfere with his return to all normal sports and activities. LTG Duration 8 weeks Three Impairment Antalgic Gait Short Term Goal (STG) Normalize gait pattern without device STG Duration 4 weeks Two Impairment Impaired Strength Short Term Goal (STG) Increase left ankle Eversion strength to 4+/5 STG Duration 4 weeks Regulatory Consultant Goal (LTG) Increase left LE strength to 5 /5 LTG Duration 8 weeks One Impairment Impaired left knee ROM, flexion 126 degrees Short Term Goal (STG) Resolve left knee pain with AROM STG Duration 4 weeks [facility] Goal (LTG) Increase left knee AROM flexion to 135 degrees LTG Duration 8 weeks Progress Towards Goals Progress Towards Goals Progressing Toward Goals Assessment Summary Assessment He tolerates treatment well today. Less edema left knee today compared to eval. Pain has not decreased today but may be related to doing more yard work over the weekend. Still gets intermittent catching in knee with some movements. Will continue Estim to determine if it can continue to decrease the inflammation and pain in his knee. He was able to do all normal activities in the yard per his report. Physical Therapy Plan Frequency and Duration Frequency of Treatment 2x/Week Duration of Treatment 8 Plan of Care Start Date 04/13/19 Plan of Care End Date 06/12/19 Therapeutic Interventions Therapeutic Interventions Balance Training,Gait Training ,Home Exercise Program,Manual Therapy,Patient/Caregiver Education,Self-Care/Home Management,Soft Tissue Mobilization,Taping, Therapeutic Activities, Therapeutic Exercises Modalities Cold Pack/Ice Massage,Electric Stimulation,Hot Packs, Infrared Therapy,Ultrasound Next Visit Focus/Plan Next Note Type Treatment Note Next Visit Plan advance strengthening with caution to avoid joint line irritation
--- NOTE | 2019-12-01 11:04 | PT.OPDS ---
Current Diagnoses Unilateral primary osteoarthritis, left knee (04/20/19) Pain in left knee (04/20/19) Visit Care Team Role Provider Type Karlo Coppola MD Primary Care Provider Non-Staff Specialty: Family Practice Address: [address] [place] [address], [id number] Email: Devin Santana MD Attending Provider Physician Referring Provider Specialty: Orthopedic Surgery Address: [address] [place] [address], [id number] Email: [email or web address] Visit Number Visit Number 3 Discharge Summary PT-OP-T Assessment and Plan Start: 04/13/19 15:33 Freq: Status: Active Protocol: Document 12/01/19 11:04 (Rec: 12/01/19 11:04 [id number]) Physical Therapy Plan Discharge Physical Therapy Discharge Reasons Patient Request Discharge Comments Patient cancelled all appointments back in May, was going to go somewhere else . BERTA from PT today
--- NOTE | 2019-12-01 11:04 | PT.OPDS ---
Current Diagnoses Unilateral primary osteoarthritis, left knee (04/20/19) Pain in left knee (04/20/19) Visit Care Team Role Provider Type Karlo Coppola MD Primary Care Provider Non-Staff Specialty: Family Practice Address: [address] [place] [address], [id number] Email: Devin Santana MD Attending Provider Physician Referring Provider Specialty: Orthopedic Surgery Address: [address] [place] [address], [id number] Email: [email or web address] Visit Number Visit Number 3 Discharge Summary PT-OP-B Current Condition Start: 04/13/19 15:33 Freq: Status: Active Protocol: Document 04/13/19 08:15 DLM (Rec: 04/14/19 09:02 DLM [id number]) Current Condition History of Current Condition Onset Date 10/10/18 Current Complaints left knee pain and swelling History of Current Condition He was standing on a fence when it gave way and he fell. He had immediate left knee pain. His knee is better than initial injury but continues to have pain, swelling and feels unstable. He feels the instability is getting worse especially with turning on his knee. His knee gets irritated with activity. Prior Treatments and Tests x-rays on left knee negative Age 17 open left knee surgery for meniscus tear Treatment Goals Patient/Caregiver Goals resolve the knee pain and be able to use the knee for normal activities Prior Functional Status Baseline Function- ADL's Independent Baseline Function- Mobility Independent Baseline Function- Work/School works at [employer] is on his feet standing and walking a lot, does some lifting Baseline Function- Recreation/Hobbies rock climbing, mountain biking Current Functional Impairments (Reported) Functional Limitations- ADL's Independent Functional Limitations- Mobility/Gait able to ambulate without device, knee feels like it will give away when he turns on it Functional Limitations- Work/School able to work normal schedule and hours but knee is swollen and sore after work Functional Limitations- Recreation/ has been limiting his Hobbies activities to manage his knee pain Functional Limitations- Other he reports he thinks he can do normal activities but it increases his pain and swelling Personal Factors Other Personal Factors That May Effect hx left ankle sprains also Therapy/Recovery with last one being last week PT-OP-C Subjective Start: 04/13/19 15:33 Freq: Status: Active Protocol: Document 04/20/19 08:17 DLM (Rec: 04/20/19 09:58 DLM [id number]) OP-PT Subjective Patient Comments Patient Comments He did a lot of yard work over weekend. He is not sure how much the Estim helps. OP-PT Pain Assessment Location Left Anterior Medial Knee Intensity 5 Scale Used Numeric (0 - 10) Description Aching Description- Other numbness anterior knee PT-OP-D Balance Start: 04/13/19 15:33 Freq: Status: Active Protocol: Document 04/13/19 08:15 DLM (Rec: 04/14/19 10:11 DLM [id number]) Balance Tests Single Limb Standing Single Limb- Right >10 sec Single Limb- Left 5 sec with increased sway left ankle PT-OP-F Manual Assessment Start: 04/13/19 15:33 Freq: Status: Active Protocol: Document 04/13/19 08:15 DLM (Rec: 04/14/19 10:18 DLM [id number]) Manual Assessments Joint Mobility Assessment Joint Mobility Assessment left patella shows decreased glides with inferior most affected PT-OP-G Mobility & Gait Start: 04/13/19 15:33 Freq: Status: Active Protocol: Document 04/13/19 08:15 DLM (Rec: 04/14/19 09:02 DLM [id number]) OP Mobility Evaluation Transfers Sit to Stand Independent without UE support Functional Movements Running Assessment pt does not run at baseline due to history of left knee injury OP Gait Assessment Gait Gait Assistance Required: Independent Assistive Devices Assistive Device None Gait Deviations General Gait Pattern Antalgic Factors Limiting Gait Function Factors Limiting Gait Function Pain Comments Gait Comments mild changes in gait pattern with decreased stance time on left PT-OP-J Posture/Palpation/Skin Start: 04/13/19 15:33 Freq: Status: Active Protocol: Document 04/13/19 08:15 DLM (Rec: 04/14/19 10:15 DLM [id number]) Posture Evaluation Position Standing Weight Distribution Weight Shifted Right Hip Posture (L) Externally Rotated,(R) Externally Rotated Ankle/Foot Posture (L) Pronated Comments Posture Comments he wears orthotics Palpation Assessment Location One Palpation Location left knee Palpation Findings Edema,Soft Tissue Tightness, Tenderness Palpation Details scar tissue throughout anterior knee, tender along joint line anterior and medial , old incision is well healed with only mild adhesions, edema is pocketed in anterior knee below patella Skin Assessment Circumference Measurement 2 Location Tibial tuberosity, left Measurement (Centimeters) 36.3 Comments right is 35.2 1 Location knee joint, left Measurement (Centimeters) 38.5 Comments right is 37.0 PT-OP-K Range of Motion Start: 04/13/19 15:33 Freq: Status: Active Protocol: Document 04/13/19 08:15 DLM (Rec: 04/14/19 09:02 DL [id number]) Hip Goniometric Range of Motion Hip Right Active Hip ROM WFL Yes Left Active Hip ROM WFL Yes Knee Goniometric Range of Motion Knee Right Knee ROM WFL Yes Patient Position Supine Flexion Active (degrees) 136 Hyper-Extension Active 2 Left Patient Position Supine Flexion Active (degrees) 126 Extension Active (degrees) 0 Knee ROM Limitations Knee ROM Limitations Soft Tissue Tightness,Pain, Swelling Comments hamstring tightness bilaterally Ankle and Foot Goniometric Range of Motion Ankle and Foot Right Active Ankle/Foot ROM WFL Yes Left Active Ankle/Foot ROM WFL Yes PT-OP-L Special Tests Start: 04/13/19 15:33 Freq: Status: Active Protocol: Document 04/13/19 08:15 DLM (Rec: 04/14/19 10:07 DLM [id number]) Special Tests Knee Special Tests Valgus- 25 Degrees Test Results negative Comments mild pain on left Valgus- 0 Degrees Test Results negative Posterior Sag Test Results negative Anterior Draw Test Results mild to moderate laxity on left compared to right PT-OP-M Strength Start: 04/13/19 15:33 Freq: Status: Active Protocol: Document 04/13/19 08:15 DLM (Rec: 04/14/19 09:02 DL [id number]) Hip Strength Hip Manual Muscle Testing Right Flexion (L2) 5 Normal Extension (S1) 5 Normal Abduction 5 Normal Adduction 5 Normal Left Flexion (L2) 5 Normal Extension (S1) 5 Normal Abduction 4+ Good+ Adduction 5 Normal Knee Strength Knee Manual Muscle Testing Right Flexion (S2) 5 Normal Extension (L3) 5 Normal Left Flexion (S2) 4+ Good+ Extension (L3) 4+ Good+ Reason Not Measured Pain Ankle/Foot Strength Ankle and Foot Manual Muscle Testing Right Dorsiflexion (L4) 5 Normal Plantarflexion (S1) 5 Normal Inversion 5 Normal Eversion (S1) 5 Normal Left Plantarflexion (S1) 4+ Good+ Inversion 4+ Good+ Eversion (S1) 4 Good PT-OP-T Assessment and Plan Start: 04/13/19 15:33 Freq: Status: Active Protocol: Document 12/01/19 11:04 (Rec: 12/01/19 11:04 [id number]) Physical Therapy Plan Discharge Physical Therapy Discharge Reasons Patient Request Discharge Comments Patient cancelled all appointments back in May, was going to go somewhere else . DC from PT today
== END 2019-12-31 08:14 ==
LOC: PHYS 08:15
PROVIDERS: PCP Family Medicine; Referring Provider Orthopaedic Surgery; Visit Provider Orthopaedic Surgery
DX: M17.12 Unilateral primary osteoarthritis, left knee (principal); M25.562 Pain in left knee
CPT/HCPCS: 97014; 97110; 97140; 97162; G0283